=== PATIENT | female | born 1965 | race Caucasian/White ===

== ENCOUNTER → 2017-05-04 | Day surgery (SDC) | payer MEDICARE ==
[~2017-05-04] MED LIST: BUPIVACAINE/EPINEPHRINE 0.25% 50 ML VIAL ONE; CYMB30CA PO; FOSA70TA PO; LACTATED RINGER'S 1000 ML INJ 1,000 ML ONE; LEVO.025 PO; MAXZ25 PO; METF500 PO; MIDAZOLAM HCL 2 MG/2 ML VIAL ONE; MORPHINE SULFATE 4 MG/ML INJ ONE; ONDANSETRON HCL 4 MG/2 ML VIAL IV PUSH ONE; OXYC-360 PO; PROPOFOL 200 MG/20 ML AMP IV ONE; VALI10TA PO; ceFAZolin INJ 1,000 MG VIAL ONE
--- NOTE | 2017-05-04 12:37 | TN ---
cc: MEJIA SANDERS M.D. DATE OF SURGERY 05/04/2017 PREOPERATIVE DIAGNOSIS 1. Right knee medial meniscus tear. 2. Right knee partial ACL rupture. POSTOPERATIVE DIAGNOSIS 1. Right knee medial and lateral meniscal tears. 2. Right knee partial ACL rupture with ACL insufficiency. 3. 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 Right knee arthroscopic with partial medial and lateral meniscectomies. 2. Right knee arthroscopic thermal shrinkage anterior cruciate ligament stretch injury. 3. Right knee chondroplasty medial femoral condyle. SURGEON Mejia Sanders MD ANESTHESIA General via laryngeal mask augmented by local infiltration BLOOD LOSS Minimal FLUID REPLACEMENT 800 cc of crystalloid. SPECIMEN No specimens were sent. COUNTS All counts were correct. COMPLICATIONS There were no intraoperative complications. INDICATIONS FOR THE PROCEDURE Miss Silva is a 52-year-old woman who has progressively developed recurrent right medial knee joint tenderness without any acute injury. She has had previous arthroscopic surgery on the knee in 2004 and 2010 where she had arthroscopic debridements and did have meniscal pathology. Her current MRI is remarkable for a recurrent medial meniscus tear and the ACL poorly visualized this. As a result of her persistent pain and mechanical symptoms, she is being taken to the operating room for right knee arthroscopy for debridement and will address any ACL insufficiency intraoperatively by a possible thermal shrinkage to the joint if present. She was aware of the risks, benefits, potential complications, and limitations of the procedure and a full written informed consent was obtained. She has been given the option of ongoing conservative treatment, but based on her persistent symptoms and functional limitations, she is eager to proceed. DESCRIPTION OF PROCEDURE After the patient was appropriately identified in the holding area, she correctly marked her right knee for surgery and I had initialed it as well. She was then given one gram of intravenous Ancef as prophylactic antibiotic and then she was taken into the operating suite where she was placed under general laryngeal mask anesthetic by Dr. Clark. She then had a well-padded tourniquet applied high on her right thigh and then she was prepped in the normal standard fashion with alcohol and Hibiclens and draped in normal standard fashion including the use of impervious stockinette from the foot all the way up to the midcalf level. At this time, a brief time-out was held confirming the right leg was the appropriate surgical site. The team was in agreement and the case was now begun. The leg was exsanguinated after being held elevated during the prep and then further exsanguinated by the use of an Christian wrap and the tourniquet was then raised to 300 mmHg. At this time, standard anteromedial and anterolateral joint line portals were established under direct vision. The scope was introduced. A small clear effusion was evacuated and inflow was initiated and a survey of the joint was as follows. The suprapatellar pouch showed no evidence of any significant chondromalacia and the patella seemed to track relatively well throughout a range of motion. There was a small area of what appeared to be old plica excision that had not caused any recurrence. At this time, the medial gutter was now explored. There was no evidence of any loose bodies or obvious synovitis. The medial compartment was now entered. Immediately came into view was a tear at the junction of the posterior third and the middle third of the meniscus. The tear was somewhat macerated and had somewhat of a degenerative appearance to it. There was evidence of previous partial meniscectomy as well. I went ahead and began debriding the area of the new tear and I resected almost half of the posterior third of the medial meniscus. Following this, it was thoroughly probed and was found to be stable. The medial femoral condyle was noted to have grade 2A and 2B chondromalacia. There were several areas of some unstable tissue that were debrided with an oscillating shaver. No evidence of any abrasion was necessary. There was no full-thickness cartilage loss. The corresponding surface on the tibia showed minimal disease. At this time, the intercondylar notch was explored. I did see evidence of what appeared to be very close to a full rupture of the anterior cruciate ligament. There was still attached soft tissue from the intercondylar notch down to the level of the tibial footprint, but the anterior drawer maneuver was greatly affected and essentially there was no evidence of any resistance to anterior drawer maneuvers other than secondary restraints. I went ahead and debrided some of the hypertrophic synovial tissue that was adherent to the previous ACL and there appeared to be primarily a rupture off of the femoral side by approximately 75% and there was still some fibers attached to the roof of the intercondylar notch. I went ahead and brought in the Arthrex wand and set it on a 50/50 setting and then performed light bursts under direct vessels visualization that clearly showed the remnant of this ACL began to slightly discolor, but also to shrivel and shrink at the same time as well. Following 15 or 20 directed treatments to the ACL that was far more tubular and without any question in my mind, there was some improvement of the resistance to anterior drawer, although there was still some laxity appreciated, but a more firm end point was noted. At this time, the lateral gutter was explored. No loose bodies were identified. No significant synovitis was seen and then the lateral compartment was explored. There was a tear seen at the junction of the posterior third and the middle third of the lateral meniscus. It was a relatively small tear. It was debrided until the edges of the meniscus were quite smooth. The chondral surfaces and lateral compartment showed minimal chondromalacia. The knee was then taken through a range of motion. I explored all compartments once again. I suction decompressed the knee, refilled it with fluid, took it through a range of motion, re-explored once and again found no further debris or pathology. The knee was then suctioned decompressed one last time. The instruments were removed. The portals were closed with 3-0 nylon simple sutures, two sutures lateral, one suture medial and then the incisions were then injected with 30 cc of quarter percent Marcaine. She was then dressed with Xeroform, 4x4s, ABD's and Christian wrap. The tourniquet was let down. There was brisk return of capillary refill. She was then awoken from anesthesia and taken to recovery in stable condition. Please note that she had palpable dorsalis pedis and posterior tibial pulses in recovery. We will go over the findings with her in the office, as well as review the MRI that demonstrates her improvement of her stability. Mejia Sanders MD Electronically Signed MD SUSU Abraham/MIGUEL A /11:15 AM /12:20 PM AGA
== END | disposition home or self-care (01) ==
LOC: ESDC 08:40
PROVIDERS: ATTEND Orthopaedic Surgery Sports Medicine
DX: S83.241A Other tear of medial meniscus, current injury, right knee, initial encounter (principal); S83.281A Other tear of lateral meniscus, current injury, right knee, initial encounter; S83.511A Sprain of anterior cruciate ligament of right knee, initial encounter; M94.261 Chondromalacia, right knee
CPT/HCPCS: 01400; 29880; 29999; J0690; J2250; J2270; J2405; J3010; J7120